=== PATIENT | male | born 1960 | race African-American/Black ===

== ENCOUNTER 2024-10-07 09:13 | Emergency (ER) | payer MEDICARE, OTHER ==
[~2024-10-07] VITALS: Ht 172.7 cm; Wt 74.4 kg
[2024-10-07] MEDS ORDERED: IBUP-1955 PO (09:43)
[2024-10-07] MEDS ORDERED: ACETAMINOPHEN 500 MG TABLET ONE (09:45)
[2024-10-07 09:56] VITALS: TEMP 98.3
[2024-10-07] MEDS: ACETAMINOPHEN 500 MG TABLET PO ONE (09:56)
[2024-10-07 10:01] VITALS: BP 147/101; O2SAT 98
== END 2024-10-07 10:02 | disposition home or self-care (01) ==
LOC: ER 09:21
DX: M54.9 Dorsalgia, unspecified (principal); Z86.73 Personal history of transient ischemic attack (TIA), and cerebral infarction without residual deficits; Z79.899 Other long term (current) drug therapy; W01.0XXA Fall on same level from slipping, tripping and stumbling without subsequent striking against object, initial encounter; Y93.89 Activity, other specified; Y92.89 Other specified places as the place of occurrence of the external cause; Y99.8 Other external cause status
CPT/HCPCS: A4606; A4663; A9150